=== PATIENT | female | born 1955 | race African-American/Black ===

== ENCOUNTER 2020-06-21 05:39 | Observation (INO) | payer OTHER ==
[2020-06-16 15:03] LABS: BASOPHILS % 0.6 % (0.0-1.0); EOSINOPHILS # (AUTO) 0.3 (0.0-0.4); EOSINOPHILS % 3.9 % (0.0-6.0); HEMATOCRIT 40.9 % (34.2-44.1); HEMOGLOBIN 12.6 g/dL (12.0-16.0); LYMPHOCYTES # (AUTO) 2.7 (1.0-3.2); LYMPHOCYTES % 37.2 % (18.0-39.1); MEAN CORPUSCULAR HEMOGLOBIN 28.1 pg (28-32); MEAN CORPUSCULAR HGB CONC 30.8 g/dL (31-35); MEAN CORPUSCULAR VOLUME 91.3 fL (81-99); MONOCYTES # (AUTO) 0.7 (0.2-0.8); MONOCYTES % 9.1 % (4.4-11.3); NEUTROPHILS # (AUTO) 3.5 (2.1-6.9); NEUTROPHILS % 48.9 % (38.7-80.0); PLATELET COUNT 286 x10e3/uL (140-360); RED BLOOD COUNT 4.48 x10e6/uL (3.6-5.1); RED CELL DISTRIBUTION WIDTH 14.3 % (11.7-14.4)
[2020-06-16 15:26] LABS: BLOOD UREA NITROGEN 17 mg/dL (7-26); BUN/CREATININE RATIO 22 (6-25); CALCIUM 10.5 mg/dL (8.4-10.2); CARBON DIOXIDE 24 mmol/L (22-29); CHLORIDE 104 mmol/L (98-107); CREATININE, SERUM 0.79 mg/dL (0.57-1.11); EST GLOMERULAR FILTRATION RATE > 60 ML/MIN (60-); GLUCOSE 93 mg/dL (74-118); SODIUM 138 mmol/L (136-145)
--- NOTE | 2020-06-16 15:47 | Diagnostic Imaging Report ---
EXAMINATION: CHEST 2 VIEWS INDICATION: Pre-operative COMPARISON: None FINDINGS: LINES/TUBES:None LUNGS:The lungs are well-inflated. No focal consolidation or pulmonary edema. PLEURA:No pleural effusion or pneumothorax. MEDIASTINUM:The cardiomediastinal silhouette appears normal in size and shape. BONES/SOFT TISSUES:No acute osseous injury. ABDOMEN:No free air under the diaphragm. IMPRESSION: No focal pneumonia or pulmonary edema. Signed by: Anamaria Mcdaniel MD on 06/16/2020 3:44 PM
[~2020-06-21] VITALS: Ht 165.1 cm; Wt 99.8 kg
[~2020-06-21 05:39] MED LIST: ALLEGRA ALLERG180 MG PO; APPLE CIDER VI300 MG PEG; ASPIRIN81 MG PO; CENTRUM ADULTS1 EACH PO; DULERA 100 MCG/13 GM INH; DYMISTA NASAL S23 GM; GABAPENTIN300 MG PO; GLUCOSAMIN-CHO1 EACH PO; LOSARTAN POTASS25 MG PO; MONTELUKAST SOD10 MG PO; OMEPRAZOLE40 MG PO; PROAIR HFA INH8.5 GM INH; SPIRONOLACTONE25 MG PO; TUMERIC PO; TYLENOL # 31 EA PO; VITAMIN D3 COM1 EACH PO; [UNRECOGNIZED DRUG - CODE] PO
[2020-06-21] MEDS ORDERED: VANCOMYCIN HCL 1,000 MG ONE (06:08)
[2020-06-21] MEDS ORDERED: TRANEXAMIC ACID 1,000 MG/10 ML ML ONE (06:09)
[2020-06-21] MEDS ORDERED: BACITRACIN 50,000 UNIT VIAL ONE (06:09)
[2020-06-21] MEDS ORDERED: CELECOXIB 200 MG CAP ONE (06:31)
[2020-06-21] MEDS ORDERED: GABAPENTIN 300 MG CAP ONE (06:32)
[2020-06-21] MEDS ORDERED: CEFAZOLIN SOD 1 GM/NS 50ML 100 ML IV ONE (06:32)
[2020-06-21] MEDS ORDERED: DEXAMETHASONE SOD PHOS 10 MG/1 ML VIAL ONE (06:32)
[2020-06-21] MEDS ORDERED: SODIUM CHLORIDE 0.9% 500ML 500 ML ONE (06:37)
[2020-06-21] MEDS ORDERED: ROPIVACAINE 246.25 MG, EPINEPHRINE HCL 1:1000 1ML 0.5 MG, CLONIDINE HCL 0.08 MG, KETORO... INJ ONE ×5 (08:00)
[2020-06-21] MEDS ORDERED: HYDROMORPHONE 1MG/1ML INJ ONE (08:05)
[2020-06-21] MEDS ORDERED: DOCUSATE SODIUM 100 MG CAP PO PRN (08:45)
[2020-06-21] MEDS ORDERED: ZOLPIDEM TARTRATE 5 MG TAB PO PRN (08:45)
[2020-06-21] MEDS ORDERED: HYDROCODONE/APAP 5MG-325MG TAB PO PRN (08:45)
[2020-06-21] MEDS ORDERED: ACETAMINOPHEN 650 MG SUPP PR PRN (08:45)
[2020-06-21] MEDS ORDERED: DIPHENHYDRAMINE HCL INJ 50 MG/ML VIAL IV PRN (08:45)
[2020-06-21] MEDS ORDERED: ONDANSETRON HCL INJ 2MG/ML 2ML 2 MG/ML VIAL IV PRN (08:45)
[2020-06-21] MEDS ORDERED: FENTANYL CITRATE/PF 100MCG/2 ML INJ ONE (09:09)
--- NOTE | 2020-06-21 09:18 | Diagnostic Imaging Report ---
Exam: Left knee radiographs-2 views History: Postoperative Comparison: None. Findings/Impression: Status post left total knee arthroplasty and patellar resurfacing with intact hardware. Alignment is unremarkable. No evidence of fracture. Overlying soft tissue edema, air, and skin jeffrey, compatible with recent surgery. Signed by: Dr. Jose Perez MD on 06/21/2020 9:15 AM
--- OUTSIDE RECORDS SUMMARY | 2020-06-21 09:26 | XMS REPORT | Summary of Care ---
Author Author TY Blair, ELIZABETH Sosa Organization Unknown Address Unknown Phone Unavailable Care Team Providers Care Asbestos Handler Name Role Phone TY Blair, PRAVEEN Unavailable Unavailable GALEN ARANA MD, VIOLETA Rosales Unavailable Unavailable YEIMI SMITH, ISABEL Unavailable Unavailable TY IRIZARRY, PRAVEEN Unavailable Unavailable Unavailable Unavailable Functional Status Name Dates Details Functional status health issues are not documented Status: Name Dates Details Cognitive status health issues are not d ocumented Status: Problems Name Dates Details Left ankle pain (719.47, M25.572) Status: Active Other secondary osteoarthritis of left a nkle (715.27, M19.272) Status: Active Left foot pain (729.5, M79.672) Status: Active Acute pain of left knee (719.46, M25.562 ) Status: Active Arthritis of left ankle (716.97, M19.072 ) Status: Active Arthritis of foot, left (716.97, M19.072 ) Status: Active Arthritis of knee, left (716.96, M17.12) Status: Active Left knee pain (719.46, M25.562) Status: Active Medications Name Dates Details Betoptic-S 0.25 % Ophthalmic Suspension INSTILL 1 DROP IN BOTH EYES EVERY 12 HOURS DAILY. Active 10 ML Bottle Spironolactone 50 MG Oral Tablet TAKE 1 TABLET TWICE DAILY. * Refills: 0 Active Losartan Potassium 50 MG Oral Tablet TAKE 1 TABLET TWICE DAILY. * Refills: 0 Active 30 Tablet Bottle Omeprazole 20 MG Oral Capsule Delayed Release TAKE 1 CAPSULE DAILY EVERY MORNING BEFORE BREAKFAST. * Refills: 0 Active CeleBREX 200 MG Oral Capsule * Refills: 0 Active Naproxen 500 MG Oral Tablet TAKE 1 TABLET TWICE DAILY * Quantity: 180 Refills: 0 Active Allergies and Adverse Reactions Name Dates Details Tylenol (Allergy) Status: Active Past Medical History Name Dates Details History of arthritis (V13.4, Z87.39) Status: Resolved History of asthma (V12.69, Z87.09) Status: Resolved History of back pain (V13.59, Z87.39) Status: Resolved History of backache (V13.59, Z87.39) Status: Resolved History of Cyst Status: Resolved History of gallbladder disease (V12.79, Z87.19) Status: Resolved History of glaucoma (V12.49, Z86.69) Status: Resolved History of gout (V12.29, Z87.39) Status: Resolved History of hypertension (V12.59, Z86.79) Status: Resolved Procedures Procedure Dates Details History of Knee replacement Completed History of Ovarian cystectomy Completed History of Ankle surgery Completed History of Ankle arthroplasty Completed Immunization Name Dates Details Immunizations not documented Family History Name Dates Details Family history of malignant neoplasm (V1 6.9, Z80.9) Status: Active Name Dates Details Family history of diabetes mellitus (V18 .0, Z83.3) Status: Active Family history of hypertension (V17.49, Z82.49) Status: Active Name Dates Details Family history of Alzheimer's disease (V 17.2, Z82.0) Status: Active Name Dates Details Family history of hepatitis (V18.8, Z83. 79) Status: Active Social History Name Dates Details - Status: Name Dates Details Never smoker Vital Signs Date Test Result Details [id number] BP Systolic 122 mm[Hg] Status: Comments: Lo cation: LUE; Position: Sitting BP Diastolic 83 mm[Hg] Status: Comments: Lo cation: LUE; Position: Sitting Height 65 in Status: Weight 237 lb Status: Body Mass Index Calculated 39.44 kg/m2 Status: Body Surface Area Calculated 2.13 m2 Status: Heart Rate 80 /min Status: Comments: Lo cation: L Radial; Results Date Description Value Details Results not documented Plan of Care Name Dates Details Planned Observations Planned Goals not documented Planned Encounters Appointment; PRAVEEN CRAWFORD M.D. On: 23-Dec-2019 10:00 Interventions Provided Plan* Completed at Today's Appointment: * Injection * Patient Education/Instructions: * Patient education and reassurance was provided for better understanding of the diagnosis and treatment plan. An opportunity to ask questions was provided. * Patient/caregiver was instructed to contact the office or emergency room for worsening pain, swelling, and/or any concerns. Understanding was acknowledged. * Instructions to keep site iced and elevated were explained in detail. Instructions to contact the office or emergency room for worsening pain, swelling, and/or any concerns were provided. Understanding was acknowledged. * Instruction to rest and refrain from vigorous or strenuous activity was given. Understanding was acknowledged. * A gradual return to normal physical activities as tolerated was recommended. Understanding was acknowledged. * A home exercise program was recommended to reduce symptoms and to improve/restore function. Understanding was acknowledged. * Follow Up: * Return to the clinic in 3 months or as needed. * x-ray(s) needed at next visit. * X-rays to be completed at next visit: Knee * Ms. PARSON presents today for acute increase in pain that is affecting daily activities. After re-evaluation to determine the source of the pain and discussion, will do cortisone injection. * She will continue with her PT for her ankle replacement and follow up in 3 months if ortho F&[facility] releases her for knee surgery. Instructions Name Dates Details Instructions not documented Encounters Appointment; MATHIEU TEJEDA NP Encounter Diagnosis: Problem not documented On: 23-Jan-2018 9:00 Appointment; ISABEL JALLOH M.D. Encounter Diagnosis: Problem not documented On: 19-Feb-2018 10:00 Appointment; MATHIEU TEJEDA NP Encounter Diagnosis: Problem not documented On: 25-Feb-2018 10:30 Appointment; PRAVEEN CRAWFORD M.D. Encounter Diagnosis: Problem not documented On: 04-Mar-2018 11:45 Appointment; PRAVEEN CRAWFORD M.D. Encounter Diagnosis: Problem not documented On: 11-Mar-2018 11:45 Appointment; PRAVEEN CRAWFORD M.D. Encounter Diagnosis: Problem not documented On: 12-Aug-2018 10:15 Appointment; PRAVEEN CRAWFORD M.D. Encounter Diagnosis: Problem not documented On: 23-Dec-2018 8:45 Appointment; PRAVEEN CRAWFORD M.D. Encounter Diagnosis: Problem not documented On: 21-Apr-2019 10:15 Appointment; PRAVEEN CRAWFORD M.D. Encounter Diagnosis: Problem not documented On: 23-Sep-2019 10:15
--- OUTSIDE RECORDS SUMMARY | 2020-06-21 09:26 | XMS REPORT | Continuity of Care Document ---
Author Author [facility] t Organization [facility] Address [address] [place] [address] Phone Unavailable Care Team Providers Care Correctional Classification Counselor Name Role Phone EDWARD WILLIS Attphys Unavailable PRAVEEN CRAWFORD M.D. Attphys Unavailable MATHIEU TEJEDA APRN Attphys Unavailable ISABEL JALLOH M.D. Attphys Unavailable MATHIEU TEJEDA NP Attphys Unavailable Cristobal JOSEPH Admphys Unavailable Payers Payer Name Policy Type Policy Number Effective Date Expiration Date S ource Problems Condition Name Condition Details Condition Category Status Onset Date Resolution Date Last Treatment Date Treating Clinician Comments Source History of arthritis History of arthritis Problem Resolved [facility] History of asthma History of asthma Problem Resolved [facility] History of backache History of backache Problem Resolved [facility] History of Cyst History of Cyst Problem Resolved [facility] History of gallbladder disease History of gallbladder disease Probl em Resolved [facility] History of glaucoma History of glaucoma Problem Resolved [facility] History of gout History of gout Problem Resolved [facility] History of hypertension History of hypertension Problem Resolved [facility] Left knee pain Left knee pain Problem Active [facility] Left ankle pain Left ankle pain Problem Active [facility] Arthritis of knee, left Arthritis of knee, left Problem Active [facility] Other secondary osteoarthritis of left ankle Other sec ondary osteoarthritis of left ankle Problem Active [facility] Left foot pain Left foot pain Problem Active [facility] Arthritis of left ankle Arthritis of left ankle Problem Active [facility] Arthritis of foot, left Arthritis of foot, left Problem Active [facility] Allergies, Adverse Reactions, Alerts Allergy Name Allergy Type Status Severity Reaction(s) Onset Date Inacti ve Date Treating Clinician Comments Source pecan nut DA Active U 2019-05-12 00:00:00 [facility] pecan nut FA Active U 2019-05-12 00:00:00 [facility] Family History Family Member Diagnosis Comments Start Date Stop Date Source uncle Family history of malignant neoplasm [facility] Mother Family history of diabetes mellitus [facility] Mother Family history of hypertension [facility] Father Family history of Alzheimer's disease [facility] Sister Family history of hepatitis [facility] Social History Smoking Status Start Date Stop Date Source Never smoked tobacco (finding) [facility] Medications Ordered Medication Name Filled Medication Name Start Date Stop Da te Current Medication? Ordering Clinician Indication Dosage Frequency Signature (SIG) Comments Components Source Betoptic-S 0.25 % Ophthalmic Suspension Betoptic-S 0.25 % Op hthalmic Suspension Yes Q12H INSTILL 1 DROP IN BOTH EYES MIKE RY [address] [facility] Spironolactone 50 MG Oral Tablet Spironolactone 50 MG Oral Tablet Yes Q0.5D TAKE [address] [facility] Losartan Potassium 50 MG Oral Tablet Losartan Potassium 50 MG Oral Tablet Yes Q0.5D TAKE [address] [facility] Omeprazole 20 MG Oral Capsule Delayed Release Omeprazo le 20 MG Oral Capsule Delayed Release Yes QD TAKE 1 C APSULE DAILY EVERY MORNING BEFORE BREAKFAST. [facility] CeleBREX 200 MG Oral Capsule CeleBREX 200 MG Oral Capsule Yes [facility] Naproxen 500 MG Oral Tablet Naproxen 500 MG Oral Tablet Yes 1 Q0.5D TAKE [address] [facility] Vital Signs Vital Name Observation Time Observation Value Comments Source BP Systolic 2019-09-23 10:26:00 122 mm[Hg] Location: LOLIS Gilman on: Sitting [facility] BP Diastolic 2019-09-23 10:26:00 83 mm[Hg] Location: LOLIS Gilman on: Sitting [facility] Height 2019-09-23 10:26:00 65 [in_us] [facility] Weight 2019-09-23 10:26:00 237 [lb_av] [facility] Body Mass Index Calculated 2019-09-23 10:26:00 39.44 kg/m2 [facility] Heart Rate 2019-09-23 10:26:00 80 /min Location: L Radial; [facility] BP Systolic 2018-01-23 09:39:00 133 mm[Hg] Location: RUE; Positi on: Sitting [facility] BP Diastolic 2018-01-23 09:39:00 80 mm[Hg] Location: RUE; [place] on: Sitting [facility] Height 2018-01-23 09:39:00 65 [in_us] [facility] Weight 2018-01-23 09:39:00 207 [lb_av] [facility] Body Mass Index Calculated 2018-01-23 09:39:00 34.45 kg/m2 [facility] Heart Rate 2018-01-23 09:39:00 74 /min Location: R Radial; [facility] Procedures Procedure Date / Time Performed Performing Clinician Sour e [U] XRAY FOOT MIN 3 VWS LEFT [id number] 2018-02-19 00:00:00 [facility] [U] XRAY ANKLE MIN 3 VWS LEFT [id number] 2018-02-19 00:00:[address] [facility] CT Knee without contrast [id number] 2018-02-19 00:00:00 [facility] History of Knee replacement [facility] of Ankle surgery [facility] of [facility] Encounters Start Date/Time End Date/Time Encounter Type Admission Type Attendi [facility] Facility Care Department Encounter ID Source 2019-09-23 10:15:00 2019-09-23 10:15:00 Appointment; PRAVEEN POLK M.D. TORRES-BARRE, LAURA, M.D. [facility] [id number] [facility] 2019-04-21 10:15:00 2019-04-21 10:15:00 Appointment; PRAVEEN POLK M.D. TORRES-BARRE, LAURA, M.D. [facility] Orthopedics [facility] [id number] [facility] 2018-12-23 08:45:00 2018-12-23 08:45:00 Appointment; PRAVEEN POLK M.D. TORRES-BARRE, LAURA, M.D. [facility] [id number] [facility] 2018-08-12 10:15:00 2018-08-12 10:15:00 Appointment; PRAVEEN POLK M.D. TORRES-BARRE, LAURA, M.D. [facility] [id number] [facility] 2018-03-11 11:45:00 2018-03-11 11:45:00 Appointment; PRAVEEN POLK M.D. TORRES-BARRE, LAURA, M.D. [facility] [id number] [facility] 2018-03-04 11:45:00 2018-03-04 11:45:00 Appointment; PRAVEEN POLK M.D. TORRES-BARRE, LAURA, M.D. [facility] [id number] [facility] 2018-02-25 10:30:00 2018-02-25 10:30:00 Appointment; SUKHWINDER TEJEDA APRN SABBARA, ROBERT, APRN [facility] [id number] [facility] 2018-02-19 10:00:00 2018-02-19 10:00:00 Appointment; DEEDEE JALLOH M.D. BEAVER, RICHARD, M.D. [facility] Orthopedics [id number] [facility] 2018-01-23 09:00:00 2018-01-23 09:00:00 Appointment; SUKHWINDER TEJEDA NP SABBARA, ROBERT, NP [facility] [id number] [facility] Results Test Description Test Time Test Comments Results Result Comments Source KNEE LEFT 1-2 VIEWS 2020-06-21 09:12:00 [place] [address] Patient Name: REENA PARSON MR #: [id number] : 1955 Age/Sex: 65/F Req #: [id number] Adm Physician: Ordered by: EDWARD WILLIS MD Report #: [id number] Location: OR Room/Bed: Procedure: [id number] DX/KNEE LEFT 1-2 VIEWS Exam Date: 06/21/20 Exam Time: 0859 REPORT STATUS: Signed Exam: Left knee radiographs-2 views History: Postoperative Comparison: None. Findings/Impression: Status post left total knee arthroplasty and patellar resurfacing with intact hardware. Alignment is unremarkable. No evidence of fracture. Overlying soft tissue edema, air, and skin jeffrey, compatible with recent surgery. Signed by: Dr. Kelley Brooke MD on 06/21/2020 9:15 AM Dictated By: KELLEY BROOKE MD 4 Transcribed By: GUILLERMO on 06/21/20914 COPY TO: EDWARD WILLIS MD CHEST 2 VIEWS 2020-06-16 15:44:00 [place] [address] Patient Name: REENA PARSON MR #: [id number] : 1955 Age/Sex: 65/F Req #: [id number] Adm Physician: Ordered by: EDWARD WILLIS MD Report #: [id number] Location: OR Room/Bed: Procedure: [id number] DX/CHEST 2 VIEWS Exam Date: 06/16/20 Exam Time: 1500 REPORT STATUS: Signed EXAMINATION: CHEST 2 VIEWS INDICATION: Pre-operative COMPARISON: None FINDINGS: LINES/TUBES:None LUNGS:The lungs are well-inflated. No focal consolidation or pulmonary edema. PLEURA:No pleural effusion or pneumothorax. MEDIAS TINUM:The cardiomediastinal silhouette appears normal in size and shape. BONES/SOFT TISSUES:No acute osseous injury. ABDOMEN:No free air under the diaphragm. IMPRESSION: No focal pneumonia or pulmonary edema. Signed by: Yumiko Henderson MD on 06/16/2020 3:44 PM Dictated By: YUMIKO HENDERSON MD 1544 Transcribed By: GUILLERMO on 06/16/20 1544 COPY TO: EDWARD WILLIS MD BREAST ULTRASOUND BILATERAL 2020-06-16 11:25:14 - BREAST ULTRASOUND BILATERALULTRASOUND OF BOTH BREASTS AND BOTH AXILLA: 06/16/2020CLINICAL: Screening with ultrasound. Comparison is made to exams dated 06/16/2020 mammogram, 02/13/2019 ultrasound, and 02/12/2018 ultrasound - [facility]. Real-time ultrasound of both breasts and both axilla and clinical breast exam were performed. No abnormalities were seen sonographically in either breast or either axilla. Clinical breast exam was unremarkable.IMPRESSION: NEGATIVE There is no sonographic evidence of malignancy. Patient has been informed that she has areas of dense breast tissue that could make it difficult to find a small cancer. A screening mammogram and supplemental ultrasound for dense breast tissue is recommended in 1 year.Jazmin Hernandez M.D. dm/:06/16/2020 11:25:14 Structural Analysis Engineer: Roxana Coley , [facility] sent: BIRADS 1-2 Combo FU Letter Ultrasound BI-RADS: 1 Negative SCR MAMM BILATERAL TRINA CAD DIGITAL 2020-06-16 10:59:26 - SCR MAMM BILATERAL TRINA CAD DIGITALBILATERAL DIGITAL SCREENING MAMMOGRAM 3D/2D WITH CAD: 06/16/2020CLINICAL: Asymptomatic. Digital breast tomosynthesis was performed in addition to routine CC and MLO views. Current mammographic images were evaluated by either a NightstaRx M-Vu or a Mirada Medicalcker CAD (computer aided detection system). Comparison is made to exams dated 02/13/2019 mammogram and mammogram - [facility]. The tissue of both breasts is heterogeneously dense. This may lower the sensitivity of mammography. There are post operative findings in the right breast. No suspicious mass, architectural distortion, malignant type calcification, or lymph node abnormality detected. IMPRESSION: NEGATIVEBilateral ultrasound pending for additional evaluation. Jazmin Hernandez M.D. dm/:06/16/2020 10:59:26 Entry: - 06/16/2020 16:40:51Imaging Technologist: Radha Carrion FW, [facility] BI-RADS: 1 Negative - XR ANKLE 3+V LT 2019-05-16 17:23:00 Patient Name: REENA PARSON Unit No: [id number] EXAMS: CPT CODE: [id number] XR ANKLE 3+V [place] [address] EXAM: - XR ANKLE 3+V LT HISTORY: POST OP Location code:C3 COMPARISON: 11/28/2018 FINDINGS: AP, oblique and lateral view of the left ankle is provided. Tibial talar arthroplasty is seen which appears intact and fully engaged. There is no periprosthetic fracture. Medial plate and screw fixation at the talonavicular articulation has been removed with remnant orthopedic screws at this location has also changed in the interval. Other hindfoot and midfoot postoperative changes are similar with prior exam. soft tissue gas and joint effusion are expected postoperative findings. IMPRESSION: 1. Status post tibiotalar arthroplasty as above. at 1723 Reported and signed by: Maciej Oviedo MD CC: Dr. Edward Hoang; Lemuel Rollins MD Technologist: Davi Nelson RT(R) Transcrpt Date/Tm/Trnsp: 05/16/2019 (172) AlexandreaCB5 Orig Print D/T: S: 05/16/2019 (1726) [facility] NAME: REENA PARSON [id number] PHYS: [place] [address] : 1955 AGE: 63 SEX: F LOC: Z.SRG PHONE #: [phone] EXAM DATE: 05/16/2019 STATUS: REG [facility] FAX #: [phone] RADIOLOGY NO: PAGE 1 Signed Report - XR ANKLE 2 VIEWS LT 2019-05-16 16:21:00 Marianela ent Name: REENA PARSON Unit No: [id number] EXAMS: CPT CODE: [id number] XR ANKLE [address] [place] [address] Left ankle arthroplasty CLINICAL INDICATION: Osteoarthritis COMPARISON: None Location E5 54 seconds seconds of fluoroscopic assistance was provided for left ankle arthroplasty. 2 Digital views demonstrate metallic prostheses in appropriate position. IMPRESSION: Left ankle arthroplasty at 1621 Reported and signed by: Mary Galindo M.D. CC: Dr. Edward Hoang; Lemuel Rollins MD Technologist: Bernard Tomlinson, (R) Transcrpt Date/Tm/Trnsp: 05/16/2019 (1621) Davian Orig Print D/T: S: 05/16/2019 (1624) [facility] NAME: REENA PARSON [address] PHYS: [place] [address] : 1955 AGE: 63 SEX: F LOC: Z.SRG PHONE #: [phone] EXAM DATE: 05/16/2019 STATUS: REG [facility] FAX #: [phone] RADIOLOGY NO: PAGE 1 Signed Report BASIC METABOLIC PANEL 2019-05-12 11:34:00 Test Item SODIUM (test code = NA) 138 MMOL/L 137-145 N POTASSIUM (test code = K) 4.7 MMOL/L 3.5-5.1 N CHLORIDE (test code = CL) 103 MMOL/L 98-107 N CARBON DIOXIDE (test code = CO2) 26 MMOL/L 22-30 N GLUCOSE (test code = GLU) 110 MG/DL 74-106 H BLOOD UREA NITROGEN (test code = BUN) 14 MG/DL 7-17 N GLOMERULAR FILTRATION RATE (test code = GFR) > 60 Reporting units: ml/min/1.73 m2 (Modified MDRD Formula)Reference Range: > or = 60 ml/min/1.73 m2 CREATININE (test code = CREAT) 0.80 MG/DL 0.52-1.04 N CALCIUM (test code = CA) 10.9 MG/DL 8.4-10.2 H BREAST ULTRASOUND [id number] 15:44:25- BREAST ULTRASOUND BILATERALULTRASOUND OF BOTH BREASTS AND BOTH AXILLA: 02/13/2019CLINICAL: Supplemental Screening for Dense Breast. Comparison is made to exams dated 02/13/2019 mammogram, 02/12/2018 ultrasound, 02/12/2018 mammogram, and [facility] Real-time ultrasound of both breasts and both axilla was performed. No abnormalities were seen sonographically in e ither breast or either axilla. Clinical breast exam was unremarkable.IMPRESSION : BENIGN There is no sonographic evidence of malignancy. Patient has been infor med that she has areas of dense breast tissue that could make it difficult to fi nd a small cancer. A screening mammogram and supplemental ultrasound for dense b reast tissue is recommended in 1 year.Jazmin Hernandez M.D. dm/:02/13/2019 15:44:25 Structural Analysis Engineer: Nova BROWN, [facility] sent: B IRADS 1-2 Combo FU Letter Ultrasound BI-RADS: 2 BenignSCR MAMM BILATERAL TRINA CAD [id number] 15:34:43 - SCR MAMM BILATERAL TRINA CAD DIGITALBILATERAL DIGITAL SCREENING MAMMOGRAM 3D/2D WITH CAD: 02/13/2019CLINICAL: Asymptomatic. Digital breast tomosynthesis was performed in addition to routine CC and MLO views. Current mammographic images were evaluated by either a NightstaRx M-Vu or a [employer] ImageCelf[employer]cker CAD (computer aided detection system). Comparison is made to exam dated [facility]/19/2018 [facility]. There are scattered fibroglandular tissues in both breasts. There are post operative findings in the right breast. No suspicious mass, architectural distortion, malignant type calcification, or lymph node abnormality detected. IMPRESSION: NEGATIVEUltrasound pending for additional evaluation. There is no mammographic evidence of malignancy. Jazmin noland/emilee:02/13/2019 15:34:43 Entry: lc - 02/15/2019 10:22:19Imaging Technologist: Karen Barron , [facility] BI-RADS: 1 Negative- XR ANKLE 3 + V [id number] 13:52:00 FAX: Burton Dial MD [phone] [employer]: O St: REG FAX: Lemuel Ac MD [phone] Name: REENA PARSON Pt. [facility] : 1955 Age/S: 63/F [address] Unit #: [id number] Loc: [place] [address] Phys: Burton Coronel MD Acct: [id number] Dis Date: Status: REG RCR PHONE #: [phone] Exam Date: 11/28/2018 1343 FAX #: [phone] Reason: FX EXAMS: CPT CODE: [id number] XR ANKLE 3 + V LT [id number] REASON FOR EXAM: FX EXAM ORDER DATE: 11/28/2018 1:38 PM Ordering MJuany: Burton Coronel MD PROCEDURE: - XR ANKLE 3 + V LT FINDINGS: 4 views of the left ankle were obtained. Fixation plates and multiple orthopedic hardware isn't seen throughout the tarsal bones. Significant collapse and deformity of the dome of the talus and of the calcaneus noted. Moderate narrowing of the talocalcaneal joint noted suggestive of disruption to the synd esmosis. 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 CC: Burton Coronel MD; Lemuel Alcala MD Technologist: Racquel Palacios RT(R) Trnscrd Date/Time/By: 11/28/2018 (3151) : By: Dez.VTL Orig Print D/T: S: 11/28/2018 (1113) PAGE 1 Signed Report [U] XRAY FOOT MIN 3 VWS LEFT [id number] 11:54:00Images acquired, not reported on this accession number.[facility][U] XRAY ANKLE MIN 3 VWS LEFT [id number] 11:54:00Images acquired, not reported on this accession number. [facility] PhysiciansTobacco Use [id number] 14:00:00* Test Item Value Reference Range Interpretation Comments Completed (test code = Completed) DONE [facility][U] XRAY ANKLE MIN 3 VWS LEFT [id number] 09:02:00Images acquired, not reported on this accession number.[facility][U] XRAY KNEE 3 VWS LEFT [id number] 09:02:00Images acquired, not reported on this accession number.[facility]
--- OUTSIDE RECORDS SUMMARY | 2020-06-21 09:26 | XMS REPORT | Summary of Care ---
Author Author TY Blair, ELIZABETH Sosa Organization Unknown Address Unknown Phone Unavailable Care Team Providers Care Vending Machine Host/Hostess Name Role Phone TY Blair, PRAVEEN Unavailable [...] Details - Status: Name Dates Details Never smoked tobacco (finding) Vital Signs Date Test Result Details No Known Vitals to report Results Date Description Value Details Results not documented Plan of Care Name Dates Details Planned Observations Planned Goals not documented Instructions Name Dates Details Instructions not documented Encounters Appointment; MATHIEU TEJEDA APRN Encounter Diagnosis: Problem not documented On: 25-Feb-2018 [...]
--- NOTE | 2020-06-21 09:46 | NUR ---
Pt received from PACU at this time. Pt is aox3 and able to verbalize needs. Pt had left total knee surgery. Dressing to left knee is dry and intact. Foot pumps in place. Breaths are even and unlabored on room air. Dr. Rose notified of new consult and waiting for call back.
[2020-06-21 10:11] VITALS: BP 126/82
[2020-06-21] MEDS: ASPIRIN 325 MG TAB PO SCH ×2 (10:31→17:14)
[2020-06-21] MEDS: HYDROCODONE/APAP 7.5MG-325MG 1 EA TAB PO PRN ×2 (10:32→17:18)
[2020-06-21] MEDS: CELECOXIB 200 MG CAP PO SCH ×2 (10:37→17:15)
[2020-06-21 11:07] VITALS: BP 126/82
[2020-06-21] MEDS ORDERED: ALBUTEROL SULFATE HFA 8GM INHALATION AEROSOL INH PRN (11:15)
[2020-06-21 11:18] VITALS: BP 126/82
[2020-06-21] MEDS: SODIUM CHLORIDE 0.9% 1000ML 1,000 ML IV SCH ×2 (11:57→20:45)
--- NOTE | 2020-06-21 11:58 | Consultation ---
DATE OF CONSULTATION: 06/21/2020 REASON FOR CONSULTATION: Medical management. HISTORY OF PRESENT ILLNESS: This is a 65-year-old woman, who was admitted to [facility] with diagnosis of advanced left knee joint osteoarthritis. The patient underwent successful left total knee arthroplasty today, which was performed by Dr. Missael Pierce. The patient states she does have pain in her left knee joint. The patient denies any chest pain, shortness of breath or cough. The patient states her main issue is asthma and sinus allergies. REVIEW OF SYSTEMS: GENERAL: Weight is stable. No fever or chills. HEENT: No headaches. No vision changes, but she suffers from severe sinus allergies. CARDIOVASCULAR/RESPIRATORY: The patient has asthma, but this time denies any shortness of breath or cough. GI: No nausea, vomiting, diarrhea or constipation. : Ruelas catheter has been removed. NEUROMUSCULAR: Complains of arthritic pain in the left knee. PAST SURGICAL HISTORY: 1. Right total knee replacement in 2009. 2. Left ankle open reduction, internal fixation. 3. Left total knee replacement today. FAMILY HISTORY: Multiple family members with hypertensive heart disease. 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 No history of alcohol or tobacco use. She has no children. ALLERGIES: 1. AMLODIPINE. 2. LISINOPRIL. PAST MEDICAL HISTORY: 1. Hypertensive heart disease. 2. Obesity. 3. Left knee degenerative joint disease. 4. Allergic rhinitis. 5. Asthma. HOME MEDICATIONS: 1. Tylenol #3 one pill daily as needed for severe pain. 2. ProAir inhaler two puffs q.i.d. p.r.n. shortness of breathing. 3. Aspirin 81 mg daily. 4. Dymista one spray to each nostril twice a day. 5. Apple cider vinegar two tablets daily. 6. Andreina 180 mg daily. 7. Gabapentin 300 mg at bedtime. 8. Glucosamine/chondroitin one twice a day. 9. Losartan 50 mg b.i.d. 10. Dulera two puffs twice a day. 11. Montelukast 10 mg daily. 12. Centrum Silver once daily. 13. Vitamin D3 complete one b.i.d. 14. Omeprazole 20 mg daily. 15. Spironolactone 50 mg daily. 16. Zinc citrate 50 mg daily. 17. Tumeric 10 mg daily. PHYSICAL EXAMINATION: GENERAL: She is awake, alert, fully oriented. She is in no distress. She is very pleasant, cooperative with exam. VITAL SIGNS: Height is 5 feet 5 inches, weight is 220 pounds, BMI 36. Blood pressure 126/82, pulse 80, respiratory rate 18, oxygen saturation 99% on room air, temperature 97.7. INTEGUMENT: Skin is warm and dry. No pallor, jaundice or diaphoresis. HEENT: Anterior sclerae. Moist mucous membranes. NECK: Supple. CARDIOVASCULAR: Distant heart sounds. Regular rate and rhythm. LUNGS: No rales, no rhonchi or wheezes. ABDOMEN: Obese, benign. EXTREMITIES: No edema or deformity. The patient's left knee is currently dressed. The patient is wearing compression stockings in the bilateral lower legs. NEUROLOGIC: Intact. No deficits appreciated. DIAGNOSES: 1. Advanced left knee degenerative joint disease. 2. Status post left total knee arthroplasty. 3. Hypertensive heart disease. 4. Obesity, BMI of 36. 5. Asthma. 6. Allergic rhinitis. PLAN: 1. Resume home medications. 2. Stop intravenous fluids. 3. Mobilize with therapy. 4. Encourage incentive spirometer usage to help prevent atelectasis. 5. Pain control. I would like to thank, Dr. Pierce, for this generous consult. I spent 45 minutes in the care of this patient. MD CHARLETTE Hughes/JA /[id number] MTDJohny
--- NOTE | 2020-06-21 12:23 | Operative Report ---
DATE OF PROCEDURE: 06/21/2020 SURGEON: Missael Pierce MD COUPON [employer] BOND COLLECTION CLERK: Srinivasan Espinoza, certified PA. PREOPERATIVE DIAGNOSIS: Osteoarthritis, left knee. POSTOPERATIVE DIAGNOSIS: Osteoarthritis, left knee. PROCEDURE: Left total knee arthroplasty. INDICATIONS: The patient is a 65-year-old lady, who has advanced osteoarthritis of her left knee. She has failed conservative management and would like to proceed with a left total knee replacement. [place] right [place] She is familiar with the procedure. I had reviewed the risks and benefits, the hospital stay and the implants. The importance of physical therapy has been stressed. All of her questions have been answered. She states she understands and wishes to proceed. PROCEDURE IN DETAIL: The patient was brought to the operating room and placed under general anesthetic. She received prophylactic antibiotics, tranexamic acid, and a regional block in the holding area. Her left lower extremity was prepped and draped in a sterile manner. The extremity was exsanguinated and a proximal tourniquet was inflated to 300 mmHg. An anterior incision with a medial parapatellar arthrotomy was performed. The patient was noted preoperatively to have 1 to 2+ varus to valgus instability. For this reason, we did minimal soft tissue dissection. The knee was brought up into flexion with the patella everted. The cruciate ligaments were sacrificed. A Lemos and Nephew posterior stabilized Legion Knee System was used. An extramedullary cutting guide was used to resect the proximal tibia. The tibial base plate was a size 4. The central fin punch was impacted and attention was directed towards the distal femur. A very large Dunlap cyst was decompressed in the process. The distal femur was resected in 5 degrees of valgus. Femoral component was sized at #4. The anterior and posterior cuts were made. The notch cut was made. Trial reductions were performed. A 9 mm posterior stabilized insert had persistent medial laxity. I elected to tighten the medial collateral ligament with a modified Herrera type of stitch with a #1 Vicryl. I also elected to use a constrained tibial insert. This then demonstrated good soft tissue balancing in both full extension and 90 degrees of flexion. As with her preoperative exam, she continued to demonstrate a slight bit of recurvatum. The patella was resurfaced with a 32 mm x 9 mm patellar button. The thickness was checked before and after, and was right around 23 mm. Patellar tracking was noted to be concentric. The trial implants were then all removed and the knee was thoroughly irrigated with a shower tip pulsatile lavage. All bone cuts had been irrigated with a spray mixture of diluted polymyxin and vancomycin spray. A 100 mL premixed pericapsular SONA injection was placed into the surrounding soft tissue. The components were cemented into place using a single mix of high viscosity Biomet cement. Care was taken to remove all extravasated cement. The wound was further irrigated while the cement cured. The arthrotomy was then closed with interrupted #1 Ethibond. The knee was put through flexion and extension to ensure a secure closure. A 500 mg of vancomycin powder was sprinkled into the wound before the arthrotomy closure. The skin was closed with subcuticular Vicryl and jeffrey. A sterile Aquacel bandage was applied. The patient was extubated and transported to the recovery room in stable condition. Blood loss was minimal. All needle and sponge counts were correct. Missael Pierce MD DR/JA /[id number]
[2020-06-21] MEDS: KETOROLAC TROMETHAMINE 30 MG/ML VIAL IV PRN (12:26)
[2020-06-21 13:25] VITALS: BP 115/78
[2020-06-21] MEDS ORDERED: BUPIVACAINE HCL 0.5% INJ 30 ML VIAL INJ ONE (14:41)
[2020-06-21] MEDS ORDERED: EPINEPHRINE HCL 1:1000 1ML 1 MG/ML AMP ONE (14:41)
[2020-06-21] MEDS: CEFAZOLIN SOD 1 GM/NS 50ML 50 ML IV SCH ×2 (16:20→23:19)
[2020-06-21 16:47] VITALS: BP 130/79
[2020-06-21] MEDS: FLUTICASONE NS SCH (17:00)
[2020-06-21] MEDS: HERB PO SCH (17:00)
[2020-06-21] MEDS: AZELASTINE NS SCH (17:00)
[2020-06-21] MEDS: IRON PO SCH (17:00)
[2020-06-21] MEDS: FOLIC ACID PO SCH (17:00)
[2020-06-21] MEDS: MV MN PO SCH (17:00)
[2020-06-21] MEDS: LOSARTAN POTASSIUM 25 MG TAB PO SCH (17:15)
--- NOTE | 2020-06-21 19:15 | NUR ---
RECEIVED REPORT FROM PREVIOUS NURSE. CALL LIGHT WITHIN REACH. PATIENT IN BED.
[2020-06-21 20:00] VITALS: BP 116/71
[2020-06-21] MEDS ORDERED: ONDANSETRON HCL INJ 2MG/ML 2ML 2 MG/ML VIAL ONE (20:16)
[2020-06-21] MEDS ORDERED: PHENYLEPHRINE HCL 1% 10 MG/ML VIAL ONE (20:16)
[2020-06-21] MEDS ORDERED: PROPOFOL IV EMULSION 10 MG/ML 20 ML VIAL ONE (20:16)
[2020-06-21] MEDS ORDERED: LIDOCAINE HCL 2% LOCAL INJ 5 ML SDV VIAL INJ ONE (20:16)
[2020-06-21] MEDS ORDERED: SEVOFLURANE INHAL SOLN 250 ML PEN BTL ONE (20:16)
[2020-06-21] MEDS ORDERED: GABAPENTIN 300 MG CAP PO SCH (21:00)
[2020-06-22] VITALS: BP 135/80
[2020-06-22 04:00] VITALS: BP 143/92
[2020-06-22 05:04] LABS: BASOPHILS % 0.3 % (0.0-1.0); EOSINOPHILS % 0.2 % (0.0-6.0); HEMATOCRIT 37.4 % (34.2-44.1); HEMOGLOBIN 11.9 g/dL (12.0-16.0); LYMPHOCYTES # (AUTO) 1.6 (1.0-3.2); LYMPHOCYTES % 15.2 % (18.0-39.1); MEAN CORPUSCULAR HEMOGLOBIN 29.9 pg (28-32); MEAN CORPUSCULAR HGB CONC 31.8 g/dL (31-35); MONOCYTES % 9.6 % (4.4-11.3); NEUTROPHILS # (AUTO) 7.8 (2.1-6.9); NEUTROPHILS % 74.2 % (38.7-80.0); PLATELET COUNT 135 x10e3/uL (140-360); RED BLOOD COUNT 3.98 x10e6/uL (3.6-5.1); RED CELL DISTRIBUTION WIDTH 15.4 % (11.7-14.4)
[2020-06-22 05:18] LABS: ANION GAP 14.6 mmol/L (8-16); BLOOD UREA NITROGEN 14 mg/dL (7-26); BUN/CREATININE RATIO 18 (6-25); CALCIUM 9.7 mg/dL (8.4-10.2); CARBON DIOXIDE 21 mmol/L (22-29); CHLORIDE 108 mmol/L (98-107); CREATININE, SERUM 0.76 mg/dL (0.57-1.11); EST GLOMERULAR FILTRATION RATE > 60 ML/MIN (60-); GLUCOSE 103 mg/dL (74-118); POTASSIUM 4.6 mmol/L (3.5-5.1); SODIUM 139 mmol/L (136-145)
[2020-06-22] MEDS: SODIUM CHLORIDE 0.9% 1000ML 1,000 ML IV SCH (06:45)
--- NOTE | 2020-06-22 07:14 | NUR ---
GAVE BEDSIDE SHIFT REPORT TO ONCOMING NURSE. CALL LIGHT WITHIN REACH. PATIENT IN BED. HOURLY ROUNDING PERFORMED. CPM ON PATIENT. PATIENT WIPED DOWNED IN BATHROOM HERSELF 2X
[2020-06-22] MEDS ORDERED: PANTOPRAZOLE SOD 40 MG TABEC PO SCH (07:30)
[2020-06-22 07:31] VITALS: BP 163/91
[2020-06-22 08:02] VITALS: BP 163/91
--- NOTE | 2020-06-22 08:19 | NUR ---
DR SEYMOUR OFFICE PREARRANGED FOLLOWING DISCHARGE PLAN OF: HOME [address] [facility] [address] HOME HEALTH WITH [facility] CONFIRMED WITH JORGE LUIS [phone] DME 3 IN ONE COMMODE, CPM AND ROLLING WALKER WITH WHEELS PROVIDED BY [employer] [phone]
--- NOTE | 2020-06-22 08:22 | Progress Note ---
DATE: 06/22/2020 CHIEF COMPLAINT/HISTORY OF PRESENT ILLNESS: This is a 65-year-old woman, who was initially admitted with a diagnosis of advanced left knee osteoarthritis. During this hospitalization, the patient underwent successful left total knee arthroplasty. The patient says the last night she was in pain. Currently, she says her pain is improving. The patient ambulated up to 80 feet yesterday with physical therapy. The patient states she is eager to be discharged home today. The patient's white blood cell count today is 10,400 with 74% segmented neutrophils. The patient's hemoglobin is 11.9 g/dL. The patient's BUN and creatinine are 14 and 0.76 with potassium of 4.6. REVIEW OF SYSTEMS: As per HPI. PHYSICAL EXAMINATION: GENERAL: She is awake, alert, fully oriented, very pleasant and cooperative with exam. VITAL SIGNS: Blood pressure is 160/90, pulse is 80, respiratory rate is 18, temperature is 96.7, oxygen saturation is 100% on room air. Height is 5 feet 5 inches, weight is 220 pounds, BMI 36. INTEGUMENT: Skin is warm and dry. No pallor, jaundice, or diaphoresis. HEENT: Anterior sclerae with moist mucous membranes. NECK: Supple. CARDIOVASCULAR: Regular rate and rhythm. LUNGS: No rales. No rhonchi or wheezes. ABDOMEN: Benign. EXTREMITIES: Currently, her left lower extremity is on a continuous passive motion machine and her left knee joint is currently dressed. No edema in the legs. NEUROLOGIC: Intact. DIAGNOSES: 1. Status post left total knee arthroplasty. 2. Hypertensive heart disease. 3. Obesity, BMI of 36. 4. Asthma. 5. Allergic rhinitis. PLAN: 1. Resume home medications. 2. Stop intravenous fluids. 3. Encouraged incentive spirometry usage to prevent atelectasis. 4. Continue to mobilize with therapy. 5. The patient will likely be discharged home today. I spent 25 minutes in the care of this patient. MD CHARLETTE Hughes/JA /[id number] DEE
[2020-06-22] MEDS ORDERED: ACETAMINOPHEN 1000 MG/100 ML IV PRN (08:45)
[2020-06-22] MEDS: CELECOXIB 200 MG CAP PO SCH (08:50)
[2020-06-22] MEDS: ASPIRIN 325 MG TAB PO SCH (08:50)
[2020-06-22] MEDS: LOSARTAN POTASSIUM 25 MG TAB PO SCH (08:50)
[2020-06-22] MEDS: HYDROCODONE/APAP 7.5MG-325MG 1 EA TAB PO PRN ×2 (08:51→14:09)
[2020-06-22] MEDS: CEFAZOLIN SOD 1 GM/NS 50ML 50 ML IV SCH (08:55)
[2020-06-22] MEDS: HERB PO SCH (08:56)
[2020-06-22] MEDS: FOLIC ACID PO SCH (08:56)
[2020-06-22] MEDS: AZELASTINE NS SCH (08:56)
[2020-06-22] MEDS: MV MN PO SCH (08:56)
[2020-06-22] MEDS: IRON PO SCH (08:56)
[2020-06-22] MEDS: FLUTICASONE NS SCH (08:56)
[2020-06-22] MEDS ORDERED: SPIRONOLACTONE 25 MG TAB PO SCH (09:00)
[2020-06-22] MEDS ORDERED: MONTELUKAST SODIUM 10 MG TAB PO SCH (09:00)
[2020-06-22] MEDS ORDERED: [UNRECOGNIZED DRUG - OTHER] PO SCH (09:00)
[2020-06-22] MEDS ORDERED: LORATADINE 10 MG TAB PO SCH (09:00)
[2020-06-22] MEDS ORDERED: NON-FORMULARY MEDICATION (Fexofenadine Hcl (Allegra Allergy) 180 MG) PO SCH (09:00)
[2020-06-22 11:26] VITALS: BP 149/80
[2020-06-22] MEDS: KETOROLAC TROMETHAMINE 30 MG/ML VIAL IV PRN (12:22)
[2020-06-22] MEDS ORDERED: ONDANSETRON HCL 4 MG ORAL DISINTEGRATING TAB PO PRN (13:00)
--- NOTE | 2020-06-22 17:08 | NUR ---
Pt discharged home at this time. Pt verbalized understanding of all discharge instructions and follow up appointments. 0 s/s of acute distress noted at time of discharge. Dr. Pierce called medications to patient pharmacy. Pt was discharged with bedside commode, walker and CPM.
== END 2020-06-22 17:09 | disposition home health service (06) ==
LOC: OR 05:39 → PACU V 08:43 → MED/SURG 09:57
PROVIDERS: ADMIT Specialist; ATTEND Specialist
DX: M17.0 Bilateral primary osteoarthritis of knee (principal); Z96.651 Presence of right artificial knee joint; J45.909 Unspecified asthma, uncomplicated; E66.9 Obesity, unspecified; Z68.36 Body mass index [BMI] 36.0-36.9, adult; Z11.59 Encounter for screening for other viral diseases; I11.9 Hypertensive heart disease without heart failure; Z01.812 Encounter for preprocedural laboratory examination
CPT/HCPCS: 27447; 36415 ×2; 71046; 73560; 80048 ×2; 85025 ×2; 86850; 86900; 86920; 93005; 97116 ×2; 97139; 97161; C1713 ×7; G0378 ×2; J0171; J0690 ×2; J1100; J1170; J1885 ×2; J2001; J2370; J2405; J2704; J2795; J3010; J3370; J7030; J7040; S0164; U0002